=== PATIENT | female | born 1950 | race Caucasian/White ===

== ENCOUNTER → 2018-05-19 | Outpatient (CLI) | payer OTHER, MEDICARE ==
[~2018-05-19] VITALS: Ht 167.6 cm; Wt 75.8 kg
[~2018-05-19] MED LIST: CARDIZEM CD120 MG PO; CITRACAL + D E1 EACH PO; CO Q-10100 MG PO; CRESTOR20 MG PO; GLUCOPHAGE XR500 M1 PO; GLUCOSAMINE CH1 EAC7 PO; L-CARNITINE500 MG PO; LEVSIN0.125 MG PO; METANX CAPSULE1 EACH PO; PIOGLITAZONE15 MG; PYRIDOSTIGMINE60 M1 PO; SOTALOL 120 MG120 M1 PO; TIROSINT112 MCG PO; TRULICITY1.5 MG/0.5 SUBQ; VITAMIN B-12250 MCG PO; VITAMIN D32000 UNI1 PO; VITAMIN E400 UNIT PO; XARELTO20 MG PO; [UNRECOGNIZED DRUG - OTHER] PO
--- NOTE | ~2018-05-19 | P ---
[facility] [place] [address] PROCEDURE REPORT Name: MERVIN JHA Room #: REG [facility].#: [id number] Admission: 05/19/18 Attend Phys: Caleb Palmer MD Discharge: Date of : 48 Report #: [id number] THIS REPORT FOR: //name// CC: Caleb Cleveland MD DATE OF SERVICE: 05/19/2018 BRIEF HISTORY: The patient is a 67-year-old woman with a history of colon polyps, for high risk screening colonoscopy. PREOPERATIVE DIAGNOSIS: High risk screening colonoscopy. POSTOPERATIVE DIAGNOSES: 1. Moderate sigmoid diverticulosis coli. 2. Small internal hemorrhoids. MEDICATIONS: Deep sedation with propofol per anesthesia. SPECIMEN: None. ESTIMATED BLOOD LOSS: None. PROCEDURE: Colonoscopy to cecum and terminal ileum. FINDINGS: Prior to propofol sedation, procedure of colonoscopy was discussed with the patient as well as potential risks and its complications. She indicates she understands and desires to proceed. DESCRIPTION OF PROCEDURE: With the patient in left lateral decubitus position, digital examination was completed, which revealed no abnormalities. Subsequently, the Olympus video colonoscope was introduced in the rectum, advanced under direct vision to the cecum, done with minimal difficulty. The cecum was identified by the ileocecal valve and the appendiceal orifice. I was able to visualize the distal segment of terminal ileum, which was inspected and noted to be unremarkable. At that point, the scope was slowly withdrawn and careful circumferential views obtained including retroflexing the scope in the ascending colon. Upon slow withdrawal of the scope, the prep was noted to be excellent. Mucosa was within normal limits, normal vascular pattern, normal light reflex. No neoplastic or inflammatory changes were seen. No polyps were seen during this examination. The colonic mucosa throughout was normal. In the sigmoid colon, there was moderate sigmoid diverticular disease without endoscopic evidence of diverticulitis. Scope was withdrawn in the rectum on retroflexion, small hemorrhoids were seen. Scope was withdrawn. The patient tolerated the procedure well. [address] [address] PROCEDURE REPORT Name: MERVIN JHA Room #: REG [facility]#: [id number] Admission: 05/19/18 Attend Phys: Caleb Palmer MD Discharge: Date of : 48 Report #: [id number] CONDITION OF THE PATIENT UPON DISCHARGE: Following procedure, the patient was drowsy, arousable, conversant and will be discharged to home when fully ambulatory. INSTRUCTIONS TO THE PATIENT AND FAMILY AT THE TIME OF DISCHARGE: No neoplastic lesions seen on this exam today. Suggest high fiber diet. Suggest followup colon exam in 10 years. She will return to care of Dr. Laina Cleveland. Last colonoscopy was almost 6 years ago. Withdrawal time from the cecum was 12 minutes and 8 seconds. <ELECTRONICALLY SIGNED> By: Caleb Palmer MD 05/25/18 1122 [id number] Caleb Palmer MD /nt
--- NOTE | ~2018-05-19 | P ---
[facility] [place] [address] PROCEDURE REPORT Name: MERVIN JHA Room #: REG [facility].#: [id number] Admission: 05/19/18 Attend Phys: Caleb Palmer MD Discharge: Date of : 48 Report #: [id number] THIS REPORT FOR: //name// CC: Caleb Cleveland MD BRIEF HISTORY: The patient is a 67-year-old woman with intermittent solid food dysphagia. She also has intermittent heartburn problems. She is anticoagulated for paroxysmal AFib with Xarelto. PREOPERATIVE DIAGNOSES: Dysphagia and intermittent reflux. POSTOPERATIVE DIAGNOSES: 1. Actively oozing arteriovenous malformation, cardia of stomach. 2. Gastritis. 3. Mild Schatzki ring. MEDICATIONS: Deep sedation with propofol per Anesthesia. SPECIMEN: Biopsies of gastritis. ESTIMATED BLOOD LOSS: 3 mL. PROCEDURE: EGD with biopsy, BICAP cautery of AVM and Taveras dilation. FINDINGS: Prior to propofol sedation, procedure of upper endoscopy was discussed with the patient as well as potential risks and its complications. She indicates she understands and desires to proceed. DESCRIPTION OF PROCEDURE: With the patient in left decubitus position, the Olympus video endoscope was inserted in the cervical esophagus under direct vision without difficulty. Examination of this organ through its entire length revealed normal esophageal mucosa down to the squamocolumnar junction. Squamocolumnar junction appeared to be normal. Intermittently, a mild Schatzki ring was seen. A hiatus hernia was not seen. We advanced the scope in the immediate cardia of the stomach. There was an area of oozing of bright red blood. It was washed away and there appeared to be an underlying AVM with persistent oozing. This was treated with a BICAP probe. It did not appear to be markedly bleeding. The scope was advanced fully into the stomach. It was examined on end view as well as retroflexed views. There was a pattern of antral gastritis with a fairly typical appearance; however, in view of the fact that she had a bleeding AVM in the cardia of stomach. It was possible some of the gastritis may actually represent vascular malformations. Biopsies were obtained. Bleeding was not seen in the distal stomach. No ulcers were seen. Upon retroflexion, no other abnormalities were seen. The pylorus, duodenal bulb and postbulbar sweep were inspected and noted to be unremarkable. At that [address] [address] PROCEDURE REPORT Name: MERVIN JHA [id number] Admission: 05/19/18 Attend Phys: Caleb Palmer MD Discharge: Date of : 48 Report #: [id number] point, the scope was slowly withdrawn and careful circumferential views confirmed the above findings. The patient tolerated the procedure well. Following procedure, she was dilated with passage of 50-Monegasque Taveras dilator. CONDITION OF THE PATIENT UPON DISCHARGE: Following procedure, the patient drowsy and prepared for colonoscopy. INSTRUCTIONS TO THE PATIENT AND FAMILY AT THE TIME OF DISCHARGE: Interesting finding of an oozing AVM, which may be significant since she does take Xarelto. No lesion was treated. She may have additional AVMs of the stomach. We will follow up on biopsies. We will also obtain a CBC to make sure she has not developed anemia from gastrointestinal bleeding. As for her ring, she is to return for dilation on an as-needed basis. She will continue her PPI as needed for control of reflux symptoms. We will proceed with colonoscopy. <ELECTRONICALLY SIGNED> By: Caleb Palmer MD 05/25/18 1122 [id number] Caleb Palmer MD /nt
--- NOTE | ~2018-05-19 | PATH ---
[facility] [address] [address] PATHOLOGY RPT PROCEDURE Name: MERVIN JHA Room #: REG [facility].#: [id number] Admission: 05/19/18 Date of : 48 Discharge: Report #: [id number] Path Case #: [id number] [facility] Accession Number: [id number] . 01 Material submitted: . GASTRITIS VS VASCULAR MALFORMATION BIOPSY . 01 Clinical history: . Pre-OP DX: Hx of polyps, dysphagia, reflux Post-OP DX: Bleeding, AVM, gastritis, Schatzki's ring, hemorrhoids, diverticulosis . 02 Diagnosis: Gastric biopsy "gastric": - Mild chronic inflammation consistent with mild chronic gastritis. - No vascular malformation seen. - The immunoperoxidase stain for Helicobacter pylori is negative. (BK/basia; 05/22/2018) . LBQ/05/22/2018 . 02 Comment: Special stain: H. pylori . 02 Electronically signed: . Fabien Hernandez MD, Pathologist NPI- [id number] . 01 Gross description: . Received in formalin labeled "Ale, Mervin, gastritis versus vascular malformation," are 3 segments of craig soft tissue measuring 1.1 x 0.7 x 0.2 cm in aggregate dimensions and ranging from 0.3 to 0.5 cm in maximum dimension. The specimen is submitted entirely in cassette A1. (TSD; 05/19/2018) TOB/TOB . 02 Pathologist provided ICD-10: K29.50 . 02 CPT . 910305, [id number] Performed at: [address], [place], [place] [id number] MD Den Montaño MD Phone: [phone] Performed at: [address] [address] PATHOLOGY RPT PROCEDURE Name: MERVIN JHA Room #: REG [facility].#: [id number] Admission: 05/19/18 Date of : 48 Discharge: Report #: [id number] Path Case #: [id number] [address] [place] [id number] MD Aleksandra Rojas MD Phone: [phone]
[2018-05-19 11:44] LABS: HEMATOCRIT 35.3 % (37.0-47.0); HEMOGLOBIN 12.2 gm/dL (12.0-15.0); MCH 32.3 pg (26.0-34.0); MCHC 34.5 g/dL (28.0-37.0); MCV 93.8 fL (80.0-100.0); RBC 3.76 mil/uL (4.20-5.00); RDW 13.7 % (10.5-14.5); WBC 5.4 thou/uL (4.0-11.0)
== END ==
LOC: GI 07:42
PROVIDERS: Specialist
DX: Z12.11 Encounter for screening for malignant neoplasm of colon (principal); K57.30 Diverticulosis of large intestine without perforation or abscess without bleeding; K64.8 Other hemorrhoids; K22.2 Esophageal obstruction; K29.50 Unspecified chronic gastritis without bleeding; I48.0 Paroxysmal atrial fibrillation; Q27.30 Arteriovenous malformation, site unspecified; I10 Essential (primary) hypertension; E11.9 Type 2 diabetes mellitus without complications; E78.00 Pure hypercholesterolemia, unspecified; K21.9 Gastro-esophageal reflux disease without esophagitis; E78.5 Hyperlipidemia, unspecified; E03.9 Hypothyroidism, unspecified; Z86.010 Personal history of colon polyps; Z79.01 Long term (current) use of anticoagulants; Z88.8 Allergy status to other drugs, medicaments and biological substances; Z79.84 Long term (current) use of oral hypoglycemic drugs; Z79.899 Other long term (current) drug therapy; Z90.89 Acquired absence of other organs; Z98.890 Other specified postprocedural states; Z90.49 Acquired absence of other specified parts of digestive tract
CPT/HCPCS: 43255; 43239; 43450; G0105; 62110; 62900